=== PATIENT | female | born 1975 | race Caucasian/White ===

== ENCOUNTER 2020-11-12 08:29 | Outpatient (CLI) | payer MEDICARE, MEDICAID | END 2020-11-12 08:30 | disposition home or self-care (01) | LOC: BICMRI 08:29 → EDBD 09:30 | PROVIDERS: ATTEND Psychiatry & Neurology Neurology | DX: G43.009 Migraine without aura, not intractable, without status migrainosus (principal); M47.816 Spondylosis without myelopathy or radiculopathy, lumbar region; M47.812 Spondylosis without myelopathy or radiculopathy, cervical region | CPT/HCPCS: 72141; 72148 ==